=== PATIENT | female | born 1985 | race Caucasian/White ===

== ENCOUNTER 2017-12-09 22:50 | Inpatient (IN) | payer BC ==
[~2017-12-09] VITALS: Ht 162.6 cm; Wt 110.9 kg
[2017-12-09 23:14] VITALS: BP 142/95; PULSE 96; TEMP 97.9
[2017-12-09 23:15] VITALS: BP 142/95; PULSE 96; TEMP 97.9
[2017-12-09] MEDS ORDERED: PRENATAL1 TA7 PO (23:19)
[2017-12-09 23:30] VITALS: BP 140/101; PULSE 110
[2017-12-09 23:45] VITALS: BP 128/89; PULSE 100
[2017-12-10] VITALS (88 sets, daily range): BP systolic 77–171; BP diastolic 57–112; PULSE 84–131; TEMP 97.7–98.6
[2017-12-10 00:17] LABS: BASO % 0.2 % (0.0-2.0); EOS # 0.1 (0.0-0.7); EOS % 1.1 % (0-4.0); GRAN # 8.6 (1.4-6.5); GRAN % 66.4 % (42.2-75.2); HEMOGLOBIN 12.5 g/dl (12.5-16.0); LYMPH # 3.2 (1.2-3.4); LYMPH % 24.6 % (20.0-51.0); MEAN CELL VOLUME 83 fl (80.0-100.0); MEAN CORPUSCULAR HEMOGLOBIN 28 pg (27.0-31.0); MEAN CORPUSCULAR HGB CONC 34 g/dl (33.0-37.0); MEAN PLATELET VOLUME 10.4 fl (7.4-10.4); MONO # 0.9 (0.1-0.6); MONO % 6.9 % (1.7-9.3); PLATELET COUNT 208 K/mm3 (130-400); RED BLOOD COUNT 4.44 M/mm3 (4.10-5.30); REDCELL DISTRIBUTION WIDTH-CV 13.9 % (11.5-14.5)
[2017-12-10 00:18] LABS: HEMATOCRIT 36.7 % (37.0-47.0)
[2017-12-10 00:29] LABS: ALBUMIN 3.4 gm/dL (3.5-5.0); BILIRUBIN,TOTAL 0.2 mg/dL (0.0-1.0); CALCIUM 10.2 mg/dL (8.4-10.2); CREATININE, serum 0.67 mg/dL (0.52-1.25); POTASSIUM 4.1 mmol/L (3.4-5.0); TOTAL PROTEIN 7.1 gm/dL (6.4-8.2)
[2017-12-10 18:47] LABS: UMBILICAL ARTERY ABG PCO2 49.9 mmHg (30-65); UMBILICAL ARTERY ABG PO2 14.4 mmHg (50-75)
[2017-12-10 18:48] LABS: UMBILICAL ARTERY ABG pH 7.29 (7.28-7.45)
[2017-12-11] VITALS (16 sets, daily range): BP systolic 72–121; BP diastolic 40–80; PULSE 88–122; TEMP 97.8–98.7
[2017-12-11 05:14] LABS: COLLECTION METHOD CATHETER
[2017-12-11 05:26] LABS: AMORPHOUS CRYSTAL Present /uL; HYALINE CAST >12 /lpf; MUCOUS Present /lpf; PH 5 (5-8); SQUAMOUS EPITHELIAL 0-2 /hpf; URINE APPEARANCE Hazy; URINE BACTERIA Occasional /hpf; URINE BILIRUBIN Negative (NEGATIVE); URINE BLOOD 3+ (NEGATIVE); URINE COLOR Yellow; URINE GLUCOSE Negative (NEGATIVE); URINE KETONE Trace (NEGATIVE); URINE LEUKOCYTE ESTERASE Negative (NEGATIVE); URINE NITRATE Negative (NEGATIVE); URINE PROTEIN(semi-quant) 2+ (NEGATIVE); URINE RBC >50 /hpf; URINE UROBILINOGEN Negative (NEGATIVE)
[2017-12-11 06:00] LABS: BASO % 0.2 % (0.0-2.0); EOS % 0.1 % (0-4.0); GRAN # 15.3 (1.4-6.5); LYMPH # 2.2 (1.2-3.4); MEAN CELL VOLUME 86 fl (80.0-100.0); MEAN CORPUSCULAR HGB CONC 33 g/dl (33.0-37.0); MEAN PLATELET VOLUME 10.4 fl (7.4-10.4); MONO % 5.2 % (1.7-9.3); PLATELET COUNT 162 K/mm3 (130-400); RED BLOOD COUNT 2.54 M/mm3 (4.10-5.30); REDCELL DISTRIBUTION WIDTH-CV 14.3 % (11.5-14.5)
[2017-12-11 06:05] LABS: HEMATOCRIT 21.9 % (37.0-47.0); HEMOGLOBIN 7.3 g/dl (12.5-16.0); MEAN CORPUSCULAR HEMOGLOBIN 29 pg (27.0-31.0)
[2017-12-11 06:07] LABS: ALANINE AMINOTRANSFERASE 28 U/L (9-52); ALBUMIN 2.1 gm/dL (3.5-5.0); ALKALINE PHOSPHATASE 100 U/L (50-136); ANION GAP 10 mmol/L (7-16); AST,SGOT 23 U/L (15-37); BILIRUBIN,TOTAL < 0.1 mg/dL (0.0-1.0); BLOOD UREA NITROGEN 12 mg/dL (7-17); CALCIUM 7.7 mg/dL (8.4-10.2); CARBON DIOXIDE 20 mmol/L (22-30); CHLORIDE 102 mmol/L (98-107); CREATININE, serum 0.95 mg/dL (0.52-1.25); GLUCOSE 125 mg/dL (74-106); POTASSIUM 3.9 mmol/L (3.4-5.0); SODIUM 132 mmol/L (137-145); TOTAL PROTEIN 4.5 gm/dL (6.4-8.2)
[2017-12-12 08:00] VITALS: BP 135/76; PULSE 110; TEMP 98.4
[2017-12-12 15:45] VITALS: BP 137/65; PULSE 110; TEMP 98.2
[2017-12-12 18:45] VITALS: BP 134/73; PULSE 130; TEMP 97.5
[2017-12-13 04:15] VITALS: BP 113/74; PULSE 114; TEMP 97.5
[2017-12-13 08:30] VITALS: BP 146/81; PULSE 127; TEMP 97.8
[2017-12-13] MEDS ORDERED: IBU600 MG PO (09:13)
[2017-12-13] MEDS ORDERED: AMOXICILLIN 50500 MG PO (09:13)
[2017-12-13] MEDS ORDERED: FERROUS SU325 MG/TAB PO (09:13)
[2017-12-13 17:00] VITALS: BP 132/76; PULSE 110; TEMP 97.8
== END 2017-12-13 17:40 | disposition home or self-care (01) | DRG 765 ==
LOC: LDRO 22:50 → OB 23:40 → LDR 23:40 → OB 12-10 20:30
PROVIDERS: Obstetrics & Gynecology; Student in an Organized Health Care Education/Training Program
PROC: 10D00Z1 Extraction of Products of Conception, Low, Open Approach (ICD-10-PCS; principal; 2017-12-10)
DX: O32.4XX0 Maternal care for high head at term, not applicable or unspecified (principal); D62 Acute posthemorrhagic anemia; O86.20 Urinary tract infection following delivery, unspecified; O13.3 Gestational [pregnancy-induced] hypertension without significant proteinuria, third trimester; Z3A.40 40 weeks gestation of pregnancy; Z37.0 Single live birth; O62.2 Other uterine inertia; O90.81 Anemia of the puerperium
CPT/HCPCS: J0330; J0360; J0595; J0690; J1885; J2270; J2550; J2590; J2704; J2710; J2795; J3010; J7030; J7120

== ENCOUNTER → 2017-12-19 | Outpatient (CLI) | payer BC ==
[~2017-12-19] MED LIST: AMOXICILLIN 50500 MG PO; FERROUS SU325 MG/TAB PO; IBU600 MG PO; PRENATAL1 TA7 PO
== END ==
LOC: OLC 11:57
DX: Z71.89 Other specified counseling (principal)